=== PATIENT | male | born 1950 | race Caucasian/White ===

== ENCOUNTER 2022-03-19 15:30 | Outpatient (REF) | payer MEDICARE, SELFPAY ==
[2022-03-19 21:08] LABS: Abs Immature Grans 0.02 10^3/uL (0.0-0.06); Absolute Basophil Count 0.07 10^3/uL (0.0-0.2); Absolute Eosinophil Count 0.21 10^3/uL (0.0-0.7); Absolute Lymphocyte Count 1.75 10^3/uL (1.2-3.4); Absolute Monocyte Count 0.81 10^3/uL (0.1-0.8); Absolute Neutrophil Count 4.67 10^3/uL (1.2-6.7); Basophils % 0.9; Eosinophils % 2.8; HGB 14.1 g/dL (13.5-17.5); Immature Grans % 0.3; Lymphocytes % 23.2; MCH 34.5 pg (27.0-33.0); MCHC 35.3 % (32.0-36.0); MCV 98 fL (80-95); MPV 10.3 fL (8.0-11.0); Monocytes % 10.8; Platelet Count 154 10^3/uL (130-400); RBC 4.09 10^6/uL (4.36-5.78); RDW 12.1 % (11.8-14.1); RDW-SD 43.4 fL; WBC 7.53 10^3/uL (4.4-10.8)
[2022-03-19 21:23] LABS: ALT 23 U/L (16-63); AST 48 U/L (15-37); Albumin 3.6 g/dL (3.4-5.0); Alkaline Phosphatase 84 U/L (46-116); Anion Gap 9.5 mmol/L (3-11); BUN 19 mg/dL (7-18); Bilirubin, Total 0.8 mg/dL (0.2-1.0); CO2 23.5 mmol/L (21.0-32.0); CREATININE 0.9 mg/dL (0.70-1.30); Calcium 9.4 mg/dL (8.5-10.1); Calculated LDL 80 mg/dL (<100); Chloride 104 mmol/L (98-107); Cholesterol 160 mg/dL (<200); Estimated GFR 91.88 (mL/min/1.73m2); Glucose 88 mg/dL (74-106); HDL Cholesterol 59 mg/dL (40-60); Potassium 3.9 mmol/L (3.5-5.1); Sodium 137 mmol/L (136-145); Total Protein 7.2 g/dL (6.4-8.2); Triglyceride 106 mg/dL (<150)
== END 2022-03-19 15:31 | disposition home or self-care (01) ==
LOC: NCHCN 15:30
PROVIDERS: Visit Provider Registered Nurse
DX: I50.9 Heart failure, unspecified (principal); F10.10 Alcohol abuse, uncomplicated; I48.91 Unspecified atrial fibrillation; Z79.899 Other long term (current) drug therapy
CPT/HCPCS: 80053; 80061; 85025

== ENCOUNTER 2022-10-04 12:44 | Emergency (ER) | payer MEDICARE, SELFPAY ==
[2022-10-04 12:49] VITALS: PULSE 60; RESP 18; TEMP 36.6; O2SAT 98
[2022-10-04 12:52] VITALS: BP 171/98
--- NOTE | 2022-10-04 13:00 | RT.EKG_ITS ---
APPROVED REPORT Exam: Resting ECG Reason for Exam: Pacemaker complication Patient Location: E HR:60 bpm ECG Measurements Heart Rate 60 AXIS OR 28 P 0 QRSd 118 QRS -76 QT 473 T 40 QTc 473 Conclusion Atrial-ventricular dual-paced rhythm
--- NOTE | 2022-10-04 13:00 | DI.RAD_ITS ---
Exam(s) XR CHEST 2V PA LATERAL EXAM: XR CHEST 2V PA LATERAL CLINICAL HISTORY: Pacemaker complication. TECHNIQUE: 2D digital imaging was performed. COMPARISON: No exams were available for comparison FINDINGS: 2 views: Left subclavian pacemaker wires. Distal tips in right ventricle. Heart size is normal. The mediastinum is not widened. Lungs are clear. No infiltrates nor pleural effusions. Mild scarring in the left lung base posterior basal segment left lower lobe. No pulmonary edema. IMPRESSION: No acute pulmonary findings.Cardiac pacemaker. No pulmonary edema. Left lower lobe benign-appearing scarring DATA REPOSITORY: RADIATION DOSE DELIVERED:
--- NOTE | 2022-10-04 13:15 | NUR.NOTE ---
Nursing Note: patient's pacemaker pushing though skin left chest- hole 1.5x1.7 with plastic pace maker pushing through. Skin elysia hole reddended and arm -==
--- NOTE | 2022-10-04 13:18 | NUR.NOTE ---
Nursing Note: patient reports the week prior he had a boil or a cyst in the left upper chest near his armpit. The cyst popped and purulent drainage was coming from wound. He currently has a 1.5x1.7 hole with what looks like his pacemaker coming though. Naima hole is reddened, raised and warm. PT reports 0/10 using the adult verbal pain scale
--- NOTE | 2022-10-04 13:47 | ED.GENADUL_ITS ---
Discharge Plan Disposition Patient Disposition: Transfer-Acute Inpatient Care Specific Acute Inpt Facility: [facility] Discharge Details Clinical Impression: Pacemaker complications Primary Care Provider: Unknown,Unknown ED Provider: Marlon Salvador Home Meds and New Rx's Prescriptions: No Action multivitamin Tablet 1 tab PO DAILY atorvastatin 20 mg Tablet 20 mg PO QHS thiamine HCl (vitamin B1) 100 mg Tablet 100 mg PO DAILY omeprazole 40 mg Capsule,Delayed Release(Dr/Ec) 40 mg PO DAILY tamsulosin 0.4 mg Capsule 0.4 mg PO HS folic acid 1 mg Tablet 1 mg PO DAILY aspirin 81 mg Tablet 81 mg PO DAILY lisinopril 5 mg Tablet 5 mg PO DAILY mirtazapine [Remeron] 15 mg Tablet 15 mg PO HS metoprolol succinate [Toprol XL] 25 mg Tablet Extended Release 24 Hr 12.5 mg PO DAILY Proventil 90 mcg/actuation Aerosol 90 mcg INHALATION PRN PRN Rx Instructions: 1 puff q4h for SOB carbidopa-levodopa 25-100 mg Tablet 1 tab PO DAILY sertraline 50 mg Tablet 50 mg PO DAILY finasteride 5 mg Tablet 5 mg PO DAILY thiamine HCl (vitamin B1) 100 mg/mL Syringe cholecalciferol (vitamin D3) [Vitamin D3] 25 mcg (1,000 unit) Tablet 1,000 unit PO DAILY budesonide-formoterol [Symbicort] 80-4.5 mcg/actuation Hfa Aerosol Inhaler See Rx Instructions .ROUTE .COMPLEX Rx Instructions: 1 puff BID melatonin 5 mg Tablet 5 mg PO HS Discharge Data Discharge Date/Time-TO BE ENTERED AT DEPARTURE: 10/04/22 16:42 Medical Decision Making Patient presenting to the emergency department for chief complaint of pacemaker complication. Patient states for last month the lateral edge of his pacemaker has seemed red and inflamed but over the past week is started protruding from the skin. He states some clear drainage around it but denies all other symptoms. Specifically he denies fever chills, chest pain, pacemaker misfiring, syncope irregular heartbeats. Physical exam shows slight erythema around a opening to the lateral anterior chest wall with pacemaker protruding approximately 1 cm x 1.5 cm. Exam is otherwise unremarkable patient is well- appearing no purulent drainage no signs of infection or cellulitis. We will plan on checking labs including blood cultures chest x-ray and EKG with consulting cardiology once results have returned. Patient denies any pain or discomfort so we will hold off on any intervention at this time. Reviewed CBC which is unremarkable and shows no leukocytosis or shift, CMP shows slightly elevated glucose and total bilirubin but no emergent findings noted. Please see physician interpretation for full interpretation of EKG but upon my review patient is AV paced with a rate of 60 no worrisome findings noted Review of chest x-ray shows pacemaker with wires in place. Called and spoke with [facility] cardiology Dr. Burden and after discussion of case he stated he wanted patient transferred to their facility when bed was available as this will need intervention. Did discuss and followed recommendations for covering the exposed device. Chlorhexidine scrub was used around the area and then Mepilex applied. Did discuss antibiotics but at this time it was recommended by cardiology to hold off on any interventions unless patient becomes febrile or symptomatic. We did get a bed available and patient was agreeable to transfer. Patient was transferred in stable condition with no new or worsening complaints. HPI General Mode of arrival: ambulatory . Date/Time Provider Initiated Documentation: 10/04/22 12:55 . Limitations to Documentation: no limitations . Information obtained by: patient and RN notes reviewed . History of Present Illness 71 year old M presents to the emergency department with the chief complaint of Pacemaker complication, Patient started experiencing this month(s) (1) Patient notes no other symptoms.. Patient did receive the following treatments prior to arrival, none Related Data Home Medications Medication Instructions Recorded Confirmed albuterol 90 mcg/actuation aerosol 90 mcg inhalation PRN PRN 10/04/22 10/04/22 inhaler aspirin 81 mg tablet 81 mg PO DAILY 10/04/22 10/04/22 atorvastatin 20 mg tablet 20 mg PO QHS 10/04/22 10/04/22 budesonide-formoterol HFA 80 See Rx Instructions .Route .COMPLEX 10/04/22 10/04/22 mcg-4.5 mcg/actuation aerosol inhaler (Symbicort) carbidopa 25 mg-levodopa 100 mg 1 tab PO DAILY 10/04/22 10/04/22 tablet cholecalciferol (vitamin D3) 25 1,000 unit PO DAILY 10/04/22 10/04/22 mcg (1,000 unit) tablet (Vitamin D3) finasteride 5 mg tablet 5 mg PO DAILY 10/04/22 10/04/22 folic acid 1 mg tablet 1 mg PO DAILY 10/04/22 10/04/22 lisinopril 5 mg tablet 5 mg PO DAILY 10/04/22 10/04/22 melatonin 5 mg tablet 5 mg PO HS 10/04/22 10/04/22 metoprolol succinate 25 mg 12.5 mg PO DAILY 10/04/22 10/04/22 tablet,extended release 24 hr (Toprol XL) mirtazapine 15 mg tablet (Remeron) 15 mg PO HS 10/04/22 10/04/22 multivitamin 1 tab PO DAILY 10/04/22 10/04/22 omeprazole 40 mg capsule,delayed 40 mg PO DAILY 10/04/22 10/04/22 release sertraline 50 mg tablet 50 mg PO DAILY 10/04/22 10/04/22 tamsulosin 0.4 mg capsule 0.4 mg PO HS 10/04/22 10/04/22 thiamine HCl (vitamin B1) 100 mg 100 mg PO DAILY 10/04/22 10/04/22 tablet thiamine HCl (vitamin B1) 100 mg 10/04/22 mg/mL injection syringe Allergies Allergy/AdvReac Type Severity Reaction Status Date / Time Unable to Assess Allergy Unverified 10/04/22 12:52 General Stated Complaint: GenMedical SAM: 3 Review of Systems Constitutional Constitutional: Denies chills, Denies fever(s) and Denies malaise Cardiovascular Cardiovascular: Denies chest pain, Denies syncope, Denies rapid heart rate, Denies irregular heart rhythm, Denies lightheadedness, Denies dyspnea and Denies slow heart rate Respiratory Respiratory: Denies cough and Denies dyspnea Gastrointestinal Gastrointestinal: Denies abdominal pain Musculoskeletal Musculoskeletal: Denies back pain Integumentary/Breasts Skin/Breast: Reports as per HPI and Reports erythema Neurologic Neurologic: Denies syncope PFSH All Active Problems (Updated 10/04/22 @ 16:16 by Marlon Salvador NP) Pacemaker complications (Acute) Parkinsons disease (Chronic) Hypertension (Chronic) Pacemaker (Acute) COPD (chronic obstructive pulmonary disease) (Chronic) Medical History (Updated 10/04/22 @ 16:16 by Marlon Salvador NP) [place] (myocardial infarction) Social History Smoking/Tobacco Use Status: Never Smoking risk assessment performed?: Yes Alcohol Intake: current Alcohol Intake frequency: a few times a week Substance use type: does not use Exam Const General: cooperative, no acute distress and not ill appearing Orientation: alert, awake and oriented x3 HENMT Mouth: moist mucous membranes Chest Chest: no localized rib tenderness and pacemaker (lateral edge of pacemaker slightly erythematous and protruding from chest) Resp Effort & Inspection: normal respiratory effort, able to speak in complete sentences and no respiratory distress Auscultation: clear to auscultation bilaterally Cardio Rate: regular rate Rhythm: regular rhythm Heart Sounds: S1 normal and S2 normal Neuro General: patient alert, patient awake, patient oriented x3, moves all extremities and no focal motor deficits Sensory Exam: no sensory deficits noted Course Vital Signs Vital signs: Vital Signs Temperature 36.6 C 10/04/22 12:49 Pulse 60 10/04/22 12:49 Respiratory Rate 18 10/04/22 12:49 Pulse Oximetry 98 10/04/22 12:49 Temperature 36.6 C 10/04/22 12:49 Temperature Source Oral 10/04/22 12:49 Pulse 60 10/04/22 12:49 Respiratory Rate 18 10/04/22 12:49 Respiratory Effort Normal, Non-Labored 10/04/22 12:51 Blood Pressure 171/98 H 10/04/22 12:52 Pulse Oximetry 98 10/04/22 12:49 Oxygen Delivery Method Room Air 10/04/22 12:49 Oxygen Flow Rate 0 10/04/22 12:49 Lab/Test Results Lab/Test Results: 10/04/22 13:12 Blood Blood Culture - Pending 10/04/22 13:12 Blood Blood Culture - Pending PAWSS Have you Been Recently Intoxicated or Drunk Within the Last 30 days?: No Have you Ever Experienced Previous Episodes of Alcohol Withdrawal?: No Have you ever Experienced Withdrawal Seizures?: No Have you ever Experienced Delirium Tremens(DT)s?: No Have you ever undergone Alcohol Rehabilitation Treatment (i.e, inpt ot outpatient treatment programs)?: Yes Have you ever Experienced Blackouts?: No Have you ever Combined Alcohol with other Downers within the last 90 days?: No Have you ever Combined Alcohol with any other Substance of Abuse during the last 90 days?: No Positive Blood Alcohol level on Presentation? [PCS.BAL]: No Evidence of Increased Autonomic Activity (i.e. HR>120, tremor, sweating, agitation, nausea)?: No Result: 1
[2022-10-04 13:57] LABS: Abs Immature Grans 0.03 10^3/uL (0.0-0.06); Absolute Basophil Count 0.06 10^3/uL (0.0-0.2); Absolute Lymphocyte Count 1.98 10^3/uL (1.2-3.4); Absolute Monocyte Count 0.65 10^3/uL (0.1-0.8); Basophils % 0.7; Eosinophils % 2.2; HCT 42.2 % (40.0-50.0); HGB 15.2 g/dL (13.5-17.5); Immature Grans % 0.3; Lymphocytes % 22.2; MCH 33.3 pg (27.0-33.0); MCV 92 fL (80-95); MPV 8.8 fL (8.0-11.0); Monocytes % 7.3; Neutrophils % 67.3; Platelet Count 159 10^3/uL (130-400); RBC 4.57 10^6/uL (4.36-5.78); RDW 13.5 % (11.8-14.1); RDW-SD 44.7 fL; WBC 8.92 10^3/uL (4.4-10.8)
[2022-10-04 14:12] LABS: ALT 9 U/L (16-63); AST 29 U/L (15-37); Albumin 3.8 g/dL (3.4-5.0); Alkaline Phosphatase 92 U/L (46-116); BUN 10 mg/dL (7-18); Bilirubin, Total 1.1 mg/dL (0.2-1.0); CREATININE 1.1 mg/dL (0.70-1.30); Calcium 8.6 mg/dL (8.5-10.1); Chloride 104 mmol/L (98-107); Estimated GFR 72.22 (mL/min/1.73m2); Glucose 113 mg/dL (74-106); Potassium 4.1 mmol/L (3.5-5.1); Sodium 143 mmol/L (136-145); Total Protein 7.7 g/dL (6.4-8.2)
--- NOTE | 2022-10-04 14:56 | DI.VRAD_ITS ---
PROCEDURE INFORMATION: Exam: XR Chest Exam date and time: 10/04/2022 1:53 PM Age: 71 years old Clinical indication: Device placement; Other: Pace maker complication TECHNIQUE: Imaging protocol: Radiologic exam of the chest. Views: 2 views. COMPARISON: No relevant prior studies available. FINDINGS: Tubes, catheters and devices: Pacemaker present left chest wall. Lungs: Unremarkable. No consolidation. Pleural spaces: Unremarkable. No pleural effusion. No pneumothorax. Heart/Mediastinum: Unremarkable. No cardiomegaly. Bones/joints: Unremarkable. IMPRESSION: No acute cardiopulmonary findings. Dictated and Authenticated by: Elmer Real MD. Ordering:PURVI Mason MD
== END 2022-10-04 16:42 | disposition short-term general hospital (02) ==
PROVIDERS: Emergency Provider Nurse Practitioner Family
DX: T82.128A Displacement of other cardiac electronic device, initial encounter (principal)
CPT/HCPCS: 36415; 80053; 87040; 93005; 99285; 71046; 85025; 93010

== ENCOUNTER 2022-10-20 17:50 | Outpatient (REF) | payer MEDICARE, SELFPAY ==
[2022-10-20 16:34] LABS: Abs Immature Grans 0.05 10^3/uL (0.0-0.06); Absolute Basophil Count 0.08 10^3/uL (0.0-0.2); Absolute Eosinophil Count 0.14 10^3/uL (0.0-0.7); Absolute Lymphocyte Count 1.29 10^3/uL (1.2-3.4); Absolute Neutrophil Count 5.58 10^3/uL (1.2-6.7); Eosinophils % 1.8; HCT 36.8 % (40.0-50.0); HGB 12.6 g/dL (13.5-17.5); Immature Grans % 0.6; Lymphocytes % 16.5; MCH 32.5 pg (27.0-33.0); MCHC 34.2 % (32.0-36.0); MCV 95 fL (80-95); MPV 10.1 fL (8.0-11.0); Monocytes % 8.9; Neutrophils % 71.2; Platelet Count 253 10^3/uL (130-400); RBC 3.88 10^6/uL (4.36-5.78); RDW 13.6 % (11.8-14.1); RDW-SD 47.5 fL; WBC 7.84 10^3/uL (4.4-10.8)
[2022-10-20 17:20] LABS: BUN 19 mg/dL (7-18); C-Reactive Protein 0.53 mg/dL (0.0-0.3); CREATININE 1.4 mg/dL (0.70-1.30); Creatine Kinase 34 U/L (39-308); Estimated GFR 54.07 (mL/min/1.73m2)
--- OUTSIDE RECORDS SUMMARY | 2022-10-20 17:53 | XMS_ITS | CCD ---
Author Name Unknown Address [address], [place] [id number] Organization Unknown Address [address], [place] [id number] Care Team Providers Care Steno Pool Supervisor Name Role Phone CARMEN PEREZ Attending Physician [phone] CARMEN PEREZ Rounding (Secondary) Physician [phone] Vital Signs Unknown or Not Available. Allergies Unknown or Not Available. Procedures Unknown or Not Available. History of Immunizations Unknown or Not Available. Problems Unknown or Not Available. Results Unknown or Not Available. Active Medications Unknown or Not Available. Medications Administered During Visit Unknown or Not Available. Encounters Encounter Diagnosis Diagnosis Code Start Date Canceled operative procedure [id number] Social History Unknown or Not Available. Patient Decision Aids Unknown or Not Available. Discharge Instructions You were admitted to [facility] on 05/19/2022 12:30 with a principal diagnosis of Procedure and treatment not carried out for other reasons You were discharged from [facility] on 05/19/2022 12:30 Should you have any questions prior to discharge, please contact a member of your healthcare team. If you have left the hospital and have any questions, please contact your primary care physician. Chief Complaint and Reason For Visit Unknown or Not Available. Function Status Unknown or Not Available. Plan of Care Unknown or Not Available. Referral/Transition of Care Unknown or Not Available.
--- OUTSIDE RECORDS SUMMARY | 2022-10-20 17:53 | XMS_ITS | CCD ---
Author Name Unknown Address [address], [place] [id number] Organization Unknown Address [address] [place] [id number] Care Team Providers Care Carbon Accountant Name Role Phone MAYO BURROUGHS Attending Physician [phone] Vital Signs Unknown or Not Available. Allergies Unknown or Not Available. Procedures Unknown or Not Available. History of Immunizations Unknown or Not Available. Problems Unknown or Not Available. Results Unknown or Not Available. Active Medications Unknown or Not Available. Medications Administered During Visit Unknown or Not Available. Encounters Encounter Diagnosis Diagnosis Code Start Date Cardiomyopathy, unspecified I429 07/19 Social History Unknown or Not Available. Patient Decision Aids Unknown or Not Available. Discharge Instructions You were admitted to [facility] on 07/29/2022 15:18 with a principal diagnosis of Cardiomyopathy, unspecified You were discharged from [facility] on 07/29/2022 15:18 Should you have any questions prior to [...]
== END 2022-10-20 17:51 | disposition home or self-care (01) ==
LOC: LBN 17:50
PROVIDERS: PCP Registered Nurse; Visit Provider Registered Nurse
DX: T82.7XXD Infection and inflammatory reaction due to other cardiac and vascular devices, implants and grafts, subsequent encounter (principal); I82.812 Embolism and thrombosis of superficial veins of left lower extremity; I25.10 Atherosclerotic heart disease of native coronary artery without angina pectoris
CPT/HCPCS: 82550; 84520; 82565; 85025; 86140

== ENCOUNTER 2022-10-27 13:29 | Outpatient (REF) | payer MEDICARE, SELFPAY ==
[2022-10-27 15:29] LABS: Abs Immature Grans 0.02 10^3/uL (0.0-0.06); Absolute Basophil Count 0.08 10^3/uL (0.0-0.2); Absolute Lymphocyte Count 1.64 10^3/uL (1.2-3.4); Absolute Monocyte Count 0.42 10^3/uL (0.1-0.8); Basophils % 1.1; Eosinophils % 2.7; HCT 38.5 % (40.0-50.0); HGB 13.4 g/dL (13.5-17.5); Immature Grans % 0.3; Lymphocytes % 22.3; MCH 32.3 pg (27.0-33.0); MCHC 34.8 % (32.0-36.0); MCV 93 fL (80-95); MPV 10.8 fL (8.0-11.0); Monocytes % 5.7; Neutrophils % 67.9; Platelet Count 190 10^3/uL (130-400); RBC 4.15 10^6/uL (4.36-5.78); RDW 13.3 % (11.8-14.1); RDW-SD 45.5 fL; WBC 7.36 10^3/uL (4.4-10.8)
[2022-10-27 15:39] LABS: BUN 15 mg/dL (7-18); C-Reactive Protein 0.16 mg/dL (0.0-0.3); Calcium 8.8 mg/dL (8.5-10.1); Chloride 105 mmol/L (98-107); Estimated GFR 80.97 (mL/min/1.73m2); Glucose 118 mg/dL (74-106); Potassium 3.7 mmol/L (3.5-5.1); Sodium 142 mmol/L (136-145)
== END 2022-10-27 13:30 | disposition home or self-care (01) ==
LOC: NCHCN 13:29
PROVIDERS: PCP Registered Nurse; Visit Provider Registered Nurse
DX: L08.89 Other specified local infections of the skin and subcutaneous tissue (principal); R73.09 Other abnormal glucose
CPT/HCPCS: 80048; 85025; 86140